=== PATIENT | male | born 1940 | race Hispanic/Latino ===

== ENCOUNTER → 2018-07-10 | Outpatient (CLI) | payer MEDICARE, OTHER ==
[~2018-07-10] MED LIST: HYDROCODON-ACE1 EAC9 PO; HYTRIN2 MG PO; LEVAQUIN500 MG PO; LISINOPRIL10 MG PO; PYRIDIUM200 MG PO; TYLENOL EXTRA500 MG PO; VICODIN 5-5001 EACH PO
--- NOTE | 2018-07-10 09:38 | Diagnostic Imaging Report ---
Exam: Right knee radiographs-3 views, left knee radiographs-3 views History: Bilateral knee pain. Comparison: None. Findings: There are moderate bilateral lateral compartment predominant tricompartmental degenerative changes with joint space narrowing and bony osteophyte formation. No evidence of acute fracture, malalignment, or suprapatellar joint effusion. 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 Signed by: Dr. Stephanie Machado MD on 07/10/2018 9:34 AM
== END ==
LOC: RAD 08:49
PROVIDERS: ATTEND Family Medicine
DX: M25.562 Pain in left knee (principal); M25.561 Pain in right knee